=== PATIENT | female | born 1955 | race African-American/Black ===

== ENCOUNTER 2022-02-28 00:42 | Inpatient (IN) | payer MEDICARE, OTHER ==
[~2022-02-28] VITALS: Ht 175.3 cm; Wt 112.9 kg
--- NOTE | 2022-02-28 01:29 | NUR ---
COVID AND FLU SWABS COLLECTED AND SENT TO LAB
[2022-02-28 01:55] LABS: BASOPHILS % (AUTO) 0.3 % (0.0-2.0); EOSINOPHILS % (AUTO) 0.8 % (0.0-6.0); HEMATOCRIT 33 % (33-45); HEMOGLOBIN 10.7 g/dL (11.5-14.8); LYMPHOCYTES # (AUTO) 0.8 K/uL (0.8-4.8); LYMPHOCYTES % (AUTO) 14.8 % (20.0-44.0); MEAN CORPUSCULAR HGB CONC 33 g/dl (31.0-36.0); MEAN CORPUSCULAR VOLUME 93 fL (82-100); MONOCYTES # (AUTO) 0.3 K/uL (0.1-1.30); MONOCYTES % (AUTO) 5.1 % (2.0-12.0); NEUTROPHILS # (AUTO) 4.5 K/uL (1.8-8.9); PLATELET COUNT (AUTO) 106 K/uL (150-450); RED BLOOD CELL COUNT(AUTO) 3.53 MIL/uL (4.0-5.2); WHITE BLOOD COUNT (AUTO) 5.6 K/uL (4.3-11.0)
[2022-02-28 02:38] LABS: CALCIUM, SERUM 8.8 mg/dL (8.5-10.1); CARBON DIOXIDE 31 mmol/L (21-32); CHLORIDE 104 mmol/L (98-107); GLUCOSE 98 mg/dL (74-106); POTASSIUM 4.2 mmol/L (3.5-5.1); SODIUM SERUM 139 mmol/L (136-145); UREA NITROGEN, BLOOD 11 mg/dL (7-18)
[2022-02-28 02:57] LABS: ALANINE AMINOTRANSFERASE 10 U/L (12-78); ALBUMIN 2.9 g/dL (3.4-5.0); ALKALINE PHOSPHATASE 48 U/L (46-116); ASPARTATE AMINOTRANSFERASE 17 U/L (15-37); BILIRUBIN,DIRECT 0.1 mg/dL (0.0-0.2); BILIRUBIN,TOTAL 0.3 mg/dL (0.2-1.0); TOTAL PROTEIN, SERUM 7.7 g/dL (6.4-8.2)
[2022-02-28] MEDS ORDERED: AZITHROMYCIN 500 MG in IV D5W 250 ML IV ONE (03:00)
[2022-02-28] MEDS ORDERED: CEFTRIAXONE 1GM BAG (ER ONLY) 1 GM/50 ML PIGGYBACK IV ONE (03:00)
[2022-02-28] MEDS ORDERED: CEFTRIAXONE 1GM BAG (ER ONLY) 50 ML IV ONE (03:01)
[2022-02-28] MEDS ORDERED: AZITHROMYCIN 500 MG VIAL ONE (03:01)
[2022-02-28] MEDS ORDERED: IV NS 0.9% 250 ML IV ONE (03:14)
[2022-02-28] MEDS ORDERED: CT SWABBABLE VALVE TRANS SET 1 EA INFUS.SET MC ONE (03:14)
[2022-02-28] MEDS ORDERED: IOHEXOL-350 100 ML VIAL IV ONE (03:14)
[2022-02-28] MEDS ORDERED: ALBUTEROL FS 2.5 MG/0.5 ML VIAL.NEB NEB PRN (04:00)
[2022-02-28] MEDS ORDERED: hydrALAZINE HCL IV 20 MG VIAL IV PRN (04:00)
[2022-02-28] MEDS ORDERED: MORPHINE SULFATE INJ 2 MG/ML DISP.SYRIN IV PRN (04:00)
[2022-02-28] MEDS ORDERED: ACETAMINOPHEN 325 MG TABLET PO PRN ×2 (04:00→13:30)
[2022-02-28] MEDS ORDERED: DEXAMETHASONE SOD PHOSPHATE 10 MG/ML VIAL IV ONE (04:00)
[2022-02-28] MEDS ORDERED: ONDANSETRON HCL/PF 4 MG/2 ML VIAL IVP PRN (04:00)
[2022-02-28] MEDS ORDERED: DEXAMETHASONE SOD PHOSPHATE 10 MG/ML VIAL ONE (04:14)
--- NOTE | 2022-02-28 04:59 | NUR ---
REPORT GIVEN TO MEHRAN
--- NOTE | 2022-02-28 05:00 | NUR ---
RN NOTES RECEIVED ER ADMISSION REPORT FROM JOEY BENSON. ALL PERTINENT ADMISSION INFO REGARDING PT NOTED. WILL WAIT FOR PT TO BE TRANSFERRED TO UNIT AND ADDRESS NEEDS ACCORDINGLY. WEATHERIZATION DIRECTOR MADE AWARE.
--- NOTE | 2022-02-28 05:08 | NUR ---
PATIENT TRANSFERRED TO [facility]
[2022-02-28 05:20] VITALS: BP 150/77
--- NOTE | 2022-02-28 05:20 | NUR ---
RN NOTES RECEIVED PT FROM ER VIA ROHAN ACCOMPANIED BY 2 ER STAFF AND TRANSFERRED TO BED VIA 1 PERSON ASSIST. PT IS A/OX4 ON VIA NC WITH RESPIRATIONS EVEN AND UNLABORED. COMPREHENSIVE PHYSICAL ASSESSMENT AND PATIENT CARE DONE. CALL LIGHT WITHIN REACH, SAFETY MEASURES AND ISOLATION PRECAUTION IN PLACE, WILL CONTINUE MONITOR AND ASSESS THROUGHOUT THE SHIFT. WILL CARRY OUT MD ORDERS ACCORDINGLY. STOCKROOM ATTENDANT MADE AWARE.
--- NOTE | 2022-02-28 06:40 | NUR ---
RN CLOSING NOTE: PATIENT REMAINS IN ROOM IN NO SIGNS OF RESPIRATORY DISTRESS, PATIENT STILL ON 2L;TOLERATING WELL SATURATING @ >95% SP02. ON REGULAR DIET. SAFETY MEASURES IMPLEMENTED, BED IN LOWEST POSITION, LOCKED, SIDE RAILS UP, CALL LIGHT WITHIN REACH. ALL NEEDS AND ORDERS ADDRESSED DURING THE SHIFT. IV ACCESS MAINTAINED INTACT, SECURED AND FLUSHING WELL. PATIENT KEPT CLEAN AND COMFORTABLE WITHIN THE SHIFT. PATIENT ENDORSED TO INCOMING SHIFT RN WITH STABLE VITAL SIGN AND FOR CONTINUITY OF CARE.
--- NOTE | 2022-02-28 07:10 | NUR ---
RN OPENING NOTE: PATIENT IN BED AOX. PATIENT BREATHING ON 2L;TOLERATING WELL SATURATING @ 92%. ON REGULAR DIET. SAFETY MEASURES IMPLEMENTED, BED IN LOWEST POSITION, LOCKED, SIDE RAILS UP, CALL LIGHT WITHIN REACH. PATIENT DENIES ANY PAIN AT THIS TIME.
[2022-02-28 08:00] VITALS: BP 129/85
[2022-02-28] MEDS ORDERED: DIVA500T2 PO (08:52)
[2022-02-28] MEDS ORDERED: FOLI0.4T6 PO (08:52)
[2022-02-28] MEDS ORDERED: TEMA15CA PO (08:52)
[2022-02-28] MEDS ORDERED: HYDR25TA4 PO (08:52)
[2022-02-28] MEDS ORDERED: ALBU8.5H8 IH (08:52)
[2022-02-28] MEDS ORDERED: ACET-868 PO (08:52)
[2022-02-28] MEDS ORDERED: MULT-24 PO (08:52)
[2022-02-28] MEDS ORDERED: FLUT1DIS3 IH (08:52)
[2022-02-28] MEDS ORDERED: PANT40TA2 PO (08:52)
[2022-02-28] MEDS ORDERED: ASPI-1420 PO (08:52)
[2022-02-28] MEDS ORDERED: SAW1CAPS PO (08:52)
[2022-02-28] MEDS ORDERED: OLAN5TAB3 PO (08:52)
[2022-02-28] MEDS ORDERED: OLAN20TA3 PO (08:52)
[2022-02-28] MEDS ORDERED: TRAZ-182 PO (08:52)
[2022-02-28] MEDS ORDERED: LISI20TA30 PO (08:52)
[2022-02-28] MEDS ORDERED: CLON0.1T PO (08:52)
[2022-02-28] MEDS ORDERED: HYDR-4076 PO (08:52)
[2022-02-28] MEDS: IPRATROPIUM/ALBUTEROL INHALER IH SCH ×4 (09:40→23:11)
[2022-02-28] MEDS: HEPARIN SODIUM, PORCINE 5000 UNITS/1 ML VIAL SQ SCH ×2 (09:42→21:09)
[2022-02-28 12:00] VITALS: BP 121/73
[2022-02-28] MEDS ORDERED: FLUTICASONE/SALMETEROL 1 DISK IH SCH (13:30)
[2022-02-28] MEDS ORDERED: TEMAZEPAM 15 MG CAPSULE PO PRN (13:30)
[2022-02-28] MEDS ORDERED: CLONIDINE HCL 0.1 MG TABLET PO PRN (13:30)
[2022-02-28] MEDS ORDERED: ALBUTEROL FS 2.5 MG/0.5 ML VIAL.NEB IH PRN (14:00)
[2022-02-28 16:00] VITALS: BP 124/72
[2022-02-28] MEDS: hydrALAZINE HCL 25 MG TABLET PO SCH (17:28)
[2022-02-28] MEDS: HYDROCHLOROTHIAZIDE 25 MG TABLET PO SCH (17:29)
[2022-02-28] MEDS: DIVALPROEX SODIUM 500 MG TABLET.DR PO SCH (17:29)
--- NOTE | 2022-02-28 18:48 | NUR ---
RN CLOSING NOTE: PATIENT IN BED AOX4. PATIENT BREATHING ON 2L;TOLERATING WELL SATURATING @ 91%. ON REGULAR DIET. IV ACCESS GERARD MIDLINE SL. ALL SAFETY MEASURES IMPLEMENTED, BED IN LOWEST POSITION, LOCKED, SIDE RAILS UP, CALL LIGHT WITHIN REACH. PATIENT DENIES ANY PAIN AT THIS TIME. WILL ENDORSE CONTINUITY OF CARE TO RESEARCH SCHOLAR
--- NOTE | 2022-02-28 19:00 | NUR ---
RN NOTE Received patient in bed, AO x 4, in no acute distress, saturation at 93% on 2L via NC, SR on the monitor, HR is 84. GERARD midline patent and flushing well, saline locked. Patient is continent and ambulatory with assist. Safety measures in place, bed is locked and at lowest position, call light within reach of patient. Will continue to monitor and reassess.
[2022-02-28 20:00] VITALS: BP 124/63
[2022-02-28] MEDS: OLANZAPINE 10 MG TABLET PO SCH (21:06)
[2022-02-28] MEDS: TRAZODONE 50 MG TABLET PO SCH (21:06)
[2022-02-28] MEDS: LISINOPRIL (20MG) 20 MG TABLET PO SCH (21:07)
[2022-03-01] VITALS: BP 115/70
[2022-03-01 04:00] VITALS: BP 114/69
[2022-03-01] MEDS: IPRATROPIUM/ALBUTEROL INHALER IH SCH ×3 (05:09→17:52)
[2022-03-01 06:44] LABS: ALBUMIN 2.6 g/dL (3.4-5.0); BILIRUBIN,TOTAL 0.2 mg/dL (0.2-1.0); CALCIUM, SERUM 8.5 mg/dL (8.5-10.1); CREATININE 1.1 mg/dL (0.6-1.3); MAGNESIUM 2.1 mg/dL (1.8-2.4); PHOSPHORUS 4.7 mg/dL (2.5-4.9); POTASSIUM 3.9 mmol/L (3.5-5.1); TOTAL PROTEIN, SERUM 7.1 g/dL (6.4-8.2)
[2022-03-01 06:52] LABS: BASOPHILS % (AUTO) 0.2 % (0.0-2.0); HEMATOCRIT 31 % (33-45); HEMOGLOBIN 10.1 g/dL (11.5-14.8); LYMPHOCYTES # (AUTO) 1.3 K/uL (0.8-4.8); LYMPHOCYTES % (AUTO) 29.7 % (20.0-44.0); MEAN CORPUSCULAR HGB CONC 33 g/dl (31.0-36.0); MEAN CORPUSCULAR VOLUME 94 fL (82-100); MONOCYTES # (AUTO) 0.3 K/uL (0.1-1.30); NEUTROPHILS # (AUTO) 2.7 K/uL (1.8-8.9); NEUTROPHILS % (AUTO) 64.1 % (43.0-81.0); PLATELET COUNT (AUTO) 96 K/uL (150-450); RED BLOOD CELL COUNT(AUTO) 3.29 MIL/uL (4.0-5.2); WHITE BLOOD COUNT (AUTO) 4.3 K/uL (4.3-11.0)
[2022-03-01 07:00] VITALS: BP 99/61
--- NOTE | 2022-03-01 07:10 | NUR ---
RN OPENING NOTE: RECEIVED PATIENT ASLEEP IN BED. NO SIGNS OF PAIN OR DISCOMFORT AT THIS TIME. RESPIRATIONS ARE EQUAL AND UNLABORED WITH NO SOB AT THIS TIME. PATIENT BREATHING ON 2L AND TOLERATING WELL SATURATING @ 94%. ON REGULAR DIET. SAFETY MEASURES IMPLEMENTED, BED IN LOWEST POSITION, LOCKED, SIDE RAILS UP, CALL LIGHT WITHIN REACH. CALL LIGHT WITHIN REACH. WILL CONTINUE TO MONITOR.
[2022-03-01 08:00] VITALS: BP 99/61
[2022-03-01] MEDS: hydrALAZINE HCL 25 MG TABLET PO SCH ×2 (08:00→17:45)
[2022-03-01] MEDS: FOLIC ACID 1 MG TABLET PO SCH (08:08)
[2022-03-01] MEDS: DIVALPROEX SODIUM 500 MG TABLET.DR PO SCH ×3 (08:09→16:36)
[2022-03-01] MEDS: PANTOPRAZOLE 40 MG TABLET.DR PO SCH (08:09)
[2022-03-01] MEDS: ASPIRIN EC 81 MG TABLET.DR PO SCH (08:09)
[2022-03-01] MEDS: HEPARIN SODIUM, PORCINE 5000 UNITS/1 ML VIAL SQ SCH ×2 (08:11→22:18)
[2022-03-01] MEDS: MULTIVITAMINS,THERAGRAN 1 UDTAB TABLET PO SCH (08:13)
[2022-03-01] MEDS: OLANZAPINE 5 MG TABLET PO SCH (08:17)
[2022-03-01 08:29] LABS: BAND % (MANUAL) 1 % (0.0-5.0); LYMPHOCYTES % (MANUAL) 29 % (16-48); MONOCYTES % (MANUAL) 5 % (0-11.0); NEUTROPHILS % (MANUAL) 65 (42-76)
[2022-03-01] MEDS ORDERED: DEXAMETHASONE SOD PHOSPHATE 4 MG/ML VIAL IVP SCH (09:00)
[2022-03-01] MEDS ORDERED: DEXAMETHASONE SOD PHOSPHATE 4 MG in IV D5W 50 ML IV SCH (09:00)
[2022-03-01] MEDS: LISINOPRIL (20MG) 20 MG TABLET PO SCH ×2 (10:00→22:17)
[2022-03-01] MEDS: HYDROCHLOROTHIAZIDE 25 MG TABLET PO SCH ×2 (10:00→16:36)
[2022-03-01] MEDS: FLUTICASONE/VILANTEROL 1 EACH BLST.W.DEV IH SCH (10:02)
[2022-03-01 16:00] VITALS: BP 116/66
--- NOTE | 2022-03-01 18:52 | NUR ---
RN CLOSING NOTE: PATIENT IN BED AOX4. RESPIRATIONS ARE EQUAL AND UNLABORED. PATIENT BREATHING ON 2L TOLERATING IT WELL SATURATING @ 94%. ON REGULAR DIET. IV ACCESS GERARD MIDLINE SL. ALL SAFETY MEASURES IMPLEMENTED, BED IN LOWEST POSITION, LOCKED, SIDE RAILS UP, CALL LIGHT WITHIN REACH. NO PAIN OR DISCOMFORT AT THIS TIME. WILL ENDORSE TO ONCOMING NURSE.
[2022-03-01 20:00] VITALS: BP 116/61
[2022-03-01] MEDS: OLANZAPINE 10 MG TABLET PO SCH (22:16)
[2022-03-01] MEDS: TRAZODONE 50 MG TABLET PO SCH (22:17)
--- NOTE | 2022-03-01 22:49 | NUR ---
KIESELGUHR REGENERATOR OPERATOR OPENING NOTE PT RECEIVED IN BED, AWAKE, A&O X4, CALM, COOPERATIVE. PT NOTED TO BE ON 2L NC WITH CURRENT O2SAT OF 95%; PT REPORTS OF HAVING COUGH AND SOB WHEN AMBULATING TO AND FROM RESTROOM; NO OTHER S/S OF RESP DISTRESS, NON-LABORED AND EQUAL BREATHING. VSS, WILL CONTINUE TO MONITOR THROUGHOUT THE NIGHT. GERARD MIDLINE 18G INTACT AND PATENT, FLUSHES EASILY WITH NO RESISTANCE; NO MEDS/FLUIDS INFUSING THROUGH IT. BED IN LOWEST POSITION, CALL LIGHT WITHIN REACH, SIDE RAILS UP X3. WILL CONTINUE TO MONITOR THROUGHOUT THE NIGHT.
[2022-03-02] VITALS: BP 120/64
[2022-03-02 04:00] VITALS: BP 116/64
[2022-03-02] MEDS: IPRATROPIUM/ALBUTEROL INHALER IH SCH ×4 (06:13→17:13)
--- NOTE | 2022-03-02 06:46 | NUR ---
BREAD SUPERVISOR CLOSING NOTE PT REMAINS IN BED, ASLEEP BUT EASILY AROUSABLE, A&O X4, CALM, COOPERATIVE. CONTINUES TO BE ON 2L NC WITH O2SAT RANGING FROM 95%-96%; CONTINUES TO HAVE COUGH; NO OTHER S/S OF RESP DISTRESS, NON-LABORED AND EQUAL BREATHING. VSS THROUGHOUT THE NIGHT WITH NO SIGNIFICANT CHANGES. GERARD MIDLINE 18G INTACT AND PATENT, FLUSHES EASILY WITH NO RESISTANCE; NO MEDS/FLUIDS INFUSING THROUGH IT. ALL DUE MEDS ADMINISTERED DURING THE NIGHT. BEF IN LOWEST POSITION, CALL LIGHT WITHIN REACH, SIDE RAILS UP X3. WILL ENDORSE TO DAYSHIFT NURSE TO CONTINUE CARE.
[2022-03-02 07:14] LABS: BASOPHILS % (AUTO) 0.2 % (0.0-2.0); EOSINOPHILS % (AUTO) 0.1 % (0.0-6.0); HEMATOCRIT 31 % (33-45); HEMOGLOBIN 9.9 g/dL (11.5-14.8); LYMPHOCYTES # (AUTO) 1.6 K/uL (0.8-4.8); LYMPHOCYTES % (AUTO) 32.5 % (20.0-44.0); MEAN CORPUSCULAR HGB CONC 32 g/dl (31.0-36.0); MEAN CORPUSCULAR VOLUME 94 fL (82-100); MONOCYTES # (AUTO) 0.2 K/uL (0.1-1.30); MONOCYTES % (AUTO) 4.7 % (2.0-12.0); NEUTROPHILS # (AUTO) 3.1 K/uL (1.8-8.9); NEUTROPHILS % (AUTO) 62.5 % (43.0-81.0); PLATELET COUNT (AUTO) 91 K/uL (150-450); RED BLOOD CELL COUNT(AUTO) 3.26 MIL/uL (4.0-5.2); WHITE BLOOD COUNT (AUTO) 4.9 K/uL (4.3-11.0)
[2022-03-02 07:26] LABS: CREATININE 1.2 mg/dL (0.6-1.3); MAGNESIUM 1.9 mg/dL (1.8-2.4); PHOSPHORUS 4.1 mg/dL (2.5-4.9); POTASSIUM 3.4 mmol/L (3.5-5.1)
--- NOTE | 2022-03-02 07:30 | NUR ---
AUTO BODY REPAIR ESTIMATOR OPENING NOTES: RECEIVED PATIENT IN BED AWAKE BUT EASILY AROUSES TO VOICE AND TOUCH. PATIENT IS ALERT, ORIENTED X 4. NO SOB NOTED AT THIS TIME. ON OXYGEN @ 2L/MIN VIA N/C WITH OXYGEN SATURATION OF 92%. IV ACCESS ON LEFT UPPER ARM MIDLINE INTACT, FLUSHES WELL, NO S/S INFILTRATION NOTED ON THE SITE. NO C/O PAIN OR DISCOMFORT AT THIS TIME. ALL SAFETY MEASURES IN PLACE. CALL LIGHT WITHIN REACH. BED LOCKED AND IN LOWEST POSITION. WILL CONTINUE TO MONITOR PATIENT THROUGHOUT SHIFT.
[2022-03-02] MEDS: PANTOPRAZOLE 40 MG TABLET.DR PO SCH (07:41)
[2022-03-02 08:00] VITALS: BP 109/62
--- NOTE | 2022-03-02 08:45 | NUR ---
CONTACTED DR MILAN DUE TO PATIENT'S BP WAS 109/62 PULSE 71 WITH 3 BP MEDICATIONS THAT ARE DUE: PRINIVIL 20MG, HYDRALAZINE 25MG AND APRESOLINE 25MG WITH AN ORDER TO GIVE PRINIVIL BUT HOLD THE OTHER 2 MEDICATIONS FOR NOW. ORDER NOTED AND CARRIED OUT
[2022-03-02] MEDS: FOLIC ACID 1 MG TABLET PO SCH (08:57)
[2022-03-02] MEDS: OLANZAPINE 5 MG TABLET PO SCH (08:57)
[2022-03-02] MEDS: DEXAMETHASONE SOD PHOSPHATE 4 MG/ML VIAL IVP SCH (08:57)
[2022-03-02] MEDS: HEPARIN SODIUM, PORCINE 5000 UNITS/1 ML VIAL SQ SCH ×2 (08:57→22:49)
[2022-03-02] MEDS: HYDROCHLOROTHIAZIDE 25 MG TABLET PO SCH ×2 (08:58→17:13)
[2022-03-02] MEDS: MULTIVITAMINS,THERAGRAN 1 UDTAB TABLET PO SCH (08:58)
[2022-03-02] MEDS: ASPIRIN EC 81 MG TABLET.DR PO SCH (08:58)
[2022-03-02] MEDS: DIVALPROEX SODIUM 500 MG TABLET.DR PO SCH ×3 (08:58→17:13)
[2022-03-02] MEDS: LISINOPRIL (20MG) 20 MG TABLET PO SCH ×2 (08:58→22:36)
[2022-03-02] MEDS: hydrALAZINE HCL 25 MG TABLET PO SCH ×2 (08:59→17:12)
[2022-03-02] MEDS: FLUTICASONE/VILANTEROL 1 EACH BLST.W.DEV IH SCH (08:59)
[2022-03-02] MEDS ORDERED: POTASSIUM CHLORIDE 20 MEQ TAB.PRT.SR PO ONE (12:00)
--- NOTE | 2022-03-02 13:50 | NUR ---
PT CAME TO TRY TO WALK THE PATIENT BUT PATIENT REFUSED.
[2022-03-02 16:00] VITALS: BP 131/62
--- NOTE | 2022-03-02 18:56 | NUR ---
PROGRAM SCHEDULE CLERK CLOSING NOTES: PATIENT IN BED AWAKE, ALERT, ORIENTED X 4. WATCHING TV AT THIS TIME. NO RESPIRATORY DISTRESS NOTED THROUGHOUT SHIFT. ON OXYGEN @ 2L/MIN VIA N/C WITH OXYGEN SATURATION OF 93 %. NO S/S INFILTRATION NOTED ON PATIENTS IV SITE ON LEFT UPPER ARM MIDLINE, FLUSHES WELL, INTACT AND PATENT. ALL NEEDS MET AND ANTICIPATED. BED LOCKED AND IN LOWEST POSITION. BED ALARM ON. CALL LIGHT WITHIN REACH. WILL ENDORSE TO NEXT SHIFT NURSE FOR CONTINUITY OF CARE.
[2022-03-02 20:00] VITALS: BP 128/68
--- NOTE | 2022-03-02 21:05 | NUR ---
MS RN OPENING NOTE PT RECEIVED IN BED, AWAKE, A&O X4, CALM, COOPERATIVE. PT ON 2L NC WITH CURRENT O2SAT OF 98%; NO S/S OF RESP DISTRESS, NON-LABORED AND EQUAL BREATHING. VSS, WILL CONTINUE TO MONITOR THROUGHOUT THE NIGHT. GERARD MIDLINE 18G INTACT AND PATENT, FLUSHES EASILY WITH NO RESISTANCE; NO MEDS/FLUIDS INFUSING THROUGH IT. BED IN LOWEST POSITION, CALL LIGHT WITHIN REACH, SIDE RAILS UP X3. WILL CONTINUE TO MONITOR THROUGHOUT THE NIGHT.
[2022-03-02] MEDS: OLANZAPINE 10 MG TABLET PO SCH (22:36)
[2022-03-02] MEDS: TRAZODONE 50 MG TABLET PO SCH (22:36)
[2022-03-03] MEDS: IPRATROPIUM/ALBUTEROL INHALER IH SCH ×5 (00:22→23:28)
[2022-03-03 04:00] VITALS: BP 115/58
--- NOTE | 2022-03-03 06:54 | NUR ---
MS RN CLOSING NOTE PT REMAINS IN BED, ASLEEP, BUT EASILY AROUSABLE, A&O X4, CALM, COOPERATIVE. CONTINUES TO BE ON 2L NC WITH O2SAT STABLE AT 98% THROUGHOUT THE NIGHT; NO S/S OF RESP DISTRESS, NON-LABORED AND EQUAL BREATHING. VSS THROUGHOUT THE NIGHT WITH NO SIGNIFICANT CHANGES. GERARD MIDLINE 18G INTACT AND PATENT, FLUSHES EASILY WITH NO RESISTANCE; NO MEDS/FLUIDS INFUSING THROUGH IT. PUREWICK INTACT AND PATENT, DRAINING CLEAR AND YELLOW URINE. ALL DUE MEDS ADMINISTERED DURING THE NIGHT. BED IN LOWEST POSITION, CALL LIGHT WITHIN REACH, SIDE RAILS UP X3. WILL ENDORSE TO DAYSHIFT NURSE TO CONTINUE CARE.
--- NOTE | 2022-03-03 07:25 | NUR ---
PLASTIC AND RECONSTRUCTIVE SURGEON OPENING NOTES: RECEIVED PATIENT IN BED ASLEEP BUT EASILY AROUSES TO TOUCH AND SOUND. PATIENT IS ALERT, ORIENTED X 4. BREATHING EVEN AND UNLABORED. ON OXYGEN @ 2L/MIN VIA N/C WITH OXYGEN SATURATION OF 96%. IV ACCESS ON LEFT UPPER ARM MIDLINE INTACT, PATENT, FLUSHES WELL, NO S/S INFILTRATION NOTED ON THE SITE. ALL SAFETY MEASURES IMPLEMENTED. BED LOCKED AND IN LOWEST POSITION. CALL LIGHT WITHIN REACH. WILL CONTINUE TO MONITOR PATIENT THROUGHOUT SHIFT.
[2022-03-03 07:52] LABS: CALCIUM, SERUM 8.8 mg/dL (8.5-10.1); CREATININE 1.1 mg/dL (0.6-1.3); PHOSPHORUS 4.2 mg/dL (2.5-4.9); POTASSIUM 4.1 mmol/L (3.5-5.1)
[2022-03-03 08:10] LABS: BASOPHILS % (AUTO) 0.4 % (0.0-2.0); EOSINOPHILS % (AUTO) 0.1 % (0.0-6.0); HEMATOCRIT 32 % (33-45); HEMOGLOBIN 10.2 g/dL (11.5-14.8); LYMPHOCYTES # (AUTO) 1.6 K/uL (0.8-4.8); LYMPHOCYTES % (AUTO) 35.2 % (20.0-44.0); MEAN CORPUSCULAR HGB CONC 32 g/dl (31.0-36.0); MEAN CORPUSCULAR VOLUME 93 fL (82-100); MONOCYTES # (AUTO) 0.3 K/uL (0.1-1.30); MONOCYTES % (AUTO) 7.3 % (2.0-12.0); NEUTROPHILS # (AUTO) 2.6 K/uL (1.8-8.9); PLATELET COUNT (AUTO) 84 K/uL (150-450); RED BLOOD CELL COUNT(AUTO) 3.41 MIL/uL (4.0-5.2); WHITE BLOOD COUNT (AUTO) 4.5 K/uL (4.3-11.0)
[2022-03-03] MEDS: PANTOPRAZOLE 40 MG TABLET.DR PO SCH (08:27)
[2022-03-03] MEDS: hydrALAZINE HCL 25 MG TABLET PO SCH ×2 (09:00→16:49)
[2022-03-03] MEDS: HYDROCHLOROTHIAZIDE 25 MG TABLET PO SCH ×2 (09:00→16:48)
[2022-03-03] MEDS: HEPARIN SODIUM, PORCINE 5000 UNITS/1 ML VIAL SQ SCH ×2 (09:13→21:59)
[2022-03-03] MEDS: DEXAMETHASONE SOD PHOSPHATE 4 MG/ML VIAL IVP SCH (09:14)
[2022-03-03] MEDS: DIVALPROEX SODIUM 500 MG TABLET.DR PO SCH ×3 (09:15→16:48)
[2022-03-03] MEDS: MULTIVITAMINS,THERAGRAN 1 UDTAB TABLET PO SCH (09:15)
[2022-03-03] MEDS: OLANZAPINE 5 MG TABLET PO SCH (09:16)
[2022-03-03] MEDS: LISINOPRIL (20MG) 20 MG TABLET PO SCH ×2 (09:17→21:56)
[2022-03-03] MEDS: ASPIRIN EC 81 MG TABLET.DR PO SCH (09:17)
[2022-03-03] MEDS: FOLIC ACID 1 MG TABLET PO SCH (09:17)
[2022-03-03] MEDS: FLUTICASONE/VILANTEROL 1 EACH BLST.W.DEV IH SCH (09:18)
[2022-03-03 11:01] LABS: BAND % (MANUAL) 10 % (0.0-5.0); LYMPHOCYTES % (MANUAL) 39 % (16-48); NEUTROPHILS % (MANUAL) 41 (42-76)
[2022-03-03 11:02] LABS: MONOCYTES % (MANUAL) 10 % (0-11.0)
[2022-03-03 11:32] LABS: ABG BASE EXCESS 4.9 mmol/L; ABG OXYGEN SATURATION 93.9 % (92.0-98.5); ABG PCO2 56.3 mmHg (35.0-45.0); ABG PH 7.365 (7.350-7.450); ABG PO2 78.3 mmHg (75.0-100.0); AaDO2 54.9 mmHg; COHb 0.3 % (0.5-1.5); MetHb 0.2 % (0.0-1.5); O2Hb 93.4 % (94.0-97.0); SITE, ABG Right Radial; VENT MODE, BG 2L NC
[2022-03-03 12:00] VITALS: BP 129/68
--- NOTE | 2022-03-03 18:38 | NUR ---
STEP DOWN NURSE CLOSING NOTES: PATIENT IN BED, WATCHING TELEVISION AT THIS TIME. PATIENT HAD NO RESPIRATORY DISTRESS THE ENTIRE SHIFT. NO C/O PAIN OR DISCOMFORT. ALL NEEDS MET AND ANTICIPATED. BED LOCKED AND IN LOWEST POSITION. WILL ENDORSE TO NEXT SHIFT NURSE FOR CONTINUITY OF CARE,
[2022-03-03 20:00] VITALS: BP 124/60
[2022-03-03] MEDS: TRAZODONE 50 MG TABLET PO SCH (21:57)
[2022-03-03] MEDS: OLANZAPINE 10 MG TABLET PO SCH (21:57)
--- NOTE | 2022-03-04 00:04 | NUR ---
MS RN OPENING NOTE PT RECEIVED IN BED, AWAKE, A&O X4, CALM, COOPERATIVE. PT ON 2L NC WITH CURRENT O2SAT OF 96%; NO S/S OF RESP DISTRESS, NON-LABORED AND EQUAL BREATHING. VSS, WILL CONTINUE TO MONITOR THROUGHOUT THE NIGHT NEEDED. GERARD MIDLINE 18G INTACT AND PATENT, FLUSHES EASILY WITH NO RESISTANCE; NO MEDS/FLUIDS INFUSING THROUGH IT. BED IN LOWEST POSITION, CALL LIGHT WITHIN REACH, SIDE RAILS UP X3. WILL CONTINUE TO MONITOR THROUGHOUT THE NIGHT.
[2022-03-04 04:00] VITALS: BP 122/60
[2022-03-04] MEDS: IPRATROPIUM/ALBUTEROL INHALER IH SCH ×3 (05:06→13:33)
--- NOTE | 2022-03-04 06:24 | NUR ---
MS RN CLOSING NOTE PT REMAINS IN BED, ASLEEP, BUT EASILY AROUSABLE, A&O X4, CALM, COOPERATIVE. CONTINUES TO BE ON 2L NC WITH O2SAT RANGING FROM 95%-96% THROUGHOUT THE NIGHT; NO S/S OF RESP DISTRESS, NON-LABORED AND EQUAL BREATHING. VSS THROUGHOUT THE NIGHT WITH NO SIGNIFICANT CHANGES. GERARD MIDLINE 18G INTACT AND PATENT, FLUSHES EASILY WITH NO RESISTANCE; NO MEDS/FLUIDS INFUSING THROUGH IT. PUREWICK INTACT AND PATENT, DRAINING CLEAR AND YELLOW URINE. ALL DUE MEDS ADMINISTERED DURING THE NIGHT. BED IN LOWEST POSITION, CALL LIGHT WITHIN REACH, SIDE RAILS UP X3. WILL ENDORSE TO DAYSHIFT NURSE TO CONTINUE CARE.
[2022-03-04 07:18] LABS: BASOPHILS % (AUTO) 0.2 % (0.0-2.0); HEMATOCRIT 32 % (33-45); HEMOGLOBIN 10.3 g/dL (11.5-14.8); LYMPHOCYTES # (AUTO) 1.6 K/uL (0.8-4.8); LYMPHOCYTES % (AUTO) 35.3 % (20.0-44.0); MEAN CORPUSCULAR HGB CONC 32 g/dl (31.0-36.0); MEAN CORPUSCULAR VOLUME 93 fL (82-100); MONOCYTES # (AUTO) 0.4 K/uL (0.1-1.30); MONOCYTES % (AUTO) 7.9 % (2.0-12.0); NEUTROPHILS # (AUTO) 2.5 K/uL (1.8-8.9); NEUTROPHILS % (AUTO) 56.6 % (43.0-81.0); PLATELET COUNT (AUTO) 88 K/uL (150-450); RED BLOOD CELL COUNT(AUTO) 3.45 MIL/uL (4.0-5.2); WHITE BLOOD COUNT (AUTO) 4.5 K/uL (4.3-11.0)
--- NOTE | 2022-03-04 07:20 | NUR ---
MS RN OPENING NOTE PT IN BED. PT ALERT AND ORIENTED X4. PT ON 2 L NASAL CANNULA. SATURATING AT 94%. NO SIGNS OF PAIN/DISCOMFORT AT THIS TIME. GERARD MIDLINE. INTACT, PATENT AND FLUSHING WELL. PUREWICK INTACT, DRAINING YELLOW COLORURINE. ALL SAFETY MEASURES IN PLACE. CALL LIGHT WITHIN REACH. BED LOCKED AT LOWEST POSITION. SIDE RAILS UP X2. BED LOCKED AT LOWEST POSITION.
[2022-03-04 08:00] VITALS: BP 108/63
[2022-03-04 08:00] LABS: CALCIUM, SERUM 8.5 mg/dL (8.5-10.1); MAGNESIUM 2.1 mg/dL (1.8-2.4); PHOSPHORUS 4.5 mg/dL (2.5-4.9); POTASSIUM 4.3 mmol/L (3.5-5.1)
[2022-03-04] MEDS: HYDROCHLOROTHIAZIDE 25 MG TABLET PO SCH ×3 (09:00→17:00)
[2022-03-04] MEDS: LISINOPRIL (20MG) 20 MG TABLET PO SCH (09:00)
[2022-03-04] MEDS: hydrALAZINE HCL 25 MG TABLET PO SCH ×2 (09:00→17:00)
[2022-03-04] MEDS: PANTOPRAZOLE 40 MG TABLET.DR PO SCH (09:53)
[2022-03-04] MEDS: FLUTICASONE/VILANTEROL 1 EACH BLST.W.DEV IH SCH (09:54)
[2022-03-04] MEDS: DEXAMETHASONE SOD PHOSPHATE 4 MG/ML VIAL IVP SCH (09:56)
[2022-03-04] MEDS: ASPIRIN EC 81 MG TABLET.DR PO SCH (09:58)
[2022-03-04] MEDS: FOLIC ACID 1 MG TABLET PO SCH (09:58)
[2022-03-04] MEDS: DIVALPROEX SODIUM 500 MG TABLET.DR PO SCH ×3 (09:58→18:40)
[2022-03-04] MEDS: OLANZAPINE 5 MG TABLET PO SCH (09:59)
[2022-03-04] MEDS: MULTIVITAMINS,THERAGRAN 1 UDTAB TABLET PO SCH (09:59)
[2022-03-04] MEDS: HEPARIN SODIUM, PORCINE 5000 UNITS/1 ML VIAL SQ SCH (10:58)
[2022-03-04 16:00] VITALS: BP 110/72
[2022-03-04 17:00] VITALS: BP 110/72
--- NOTE | 2022-03-04 17:30 | NUR ---
RN NOTE GAVE REPORT TO MICHELLE AT [facility]. SPOKE WITH MICHELLE REGARDING PT HR AND BP. BP IS WITHIN NORMAL LIMITS AND HR IS ABOVE 50
--- NOTE | 2022-03-04 19:56 | NUR ---
TELEGRAPH PRINTER MECHANIC NOTE PT STABLE CONDITION. GAVE DISCHARGE INSTRUCTIONS/PAPERWORK TO EMT. VERBALIZED UNDERSTANDING. KEPT GERARD MIDLINE DUE TO PT CONTINUING TO GIVE IV ANTIBIOTICS. PT HR IS ABOVE 50.
[2022-03-04 22:33] LABS: BAND % (MANUAL) 1 % (0.0-5.0); LYMPHOCYTES % (MANUAL) 38 % (16-48); MONOCYTES % (MANUAL) 3 % (0-11.0); NEUTROPHILS % (MANUAL) 58 (42-76)
== END 2022-03-04 21:02 | DRG 177 ==
LOC: ER 00:52 → TELE1 03:59 → MEDSG1 03-01 10:07
PROVIDERS: ADMIT Nurse Practitioner Acute Care; ATTEND Student in an Organized Health Care Education/Training Program
PROC: 05H633Z Insertion of Infusion Device into Left Subclavian Vein, Percutaneous Approach (ICD-10-PCS; principal; 2022-02-28)
PROC: B547ZZA Ultrasonography of Left Subclavian Vein, Guidance (ICD-10-PCS; 2022-02-28)
DX: U07.1 COVID-19 (principal); J12.82 Pneumonia due to coronavirus disease 2019; J96.01 Acute respiratory failure with hypoxia; D69.6 Thrombocytopenia, unspecified; D64.9 Anemia, unspecified; E66.9 Obesity, unspecified; F17.210 Nicotine dependence, cigarettes, uncomplicated; F39 Unspecified mood [affective] disorder; I10 Essential (primary) hypertension; J45.909 Unspecified asthma, uncomplicated; K21.9 Gastro-esophageal reflux disease without esophagitis; Z85.3 Personal history of malignant neoplasm of breast; F29 Unspecified psychosis not due to a substance or known physiological condition; J20.8 Acute bronchitis due to other specified organisms; G47.00 Insomnia, unspecified; G47.33 Obstructive sleep apnea (adult) (pediatric)
CPT/HCPCS: 36410; 36415; 36600; 71045-TC; 80048-TC; 80053-TC; 80076-TC; 82803-TC; 83605-TC; 83735-TC; 83880; 84100-TC; 84484-TC; 85025-TC; 85378-TC; 85730-TC; 86140-TC; 87040-TC; 87081-TC; 94799-TC; 97116-TC; 97530-TC; C9803; G0378; J0456; J0696; J1100; J1644; J7050; J7060; Q9967